=== PATIENT | male | born 1985 | race Caucasian/White ===

== ENCOUNTER 2016-07-01 15:20 | Emergency (ER) | payer SELFPAY ==
[~2016-07-01] VITALS: Ht 177.8 cm; Wt 79.4 kg
[~2016-07-01 15:20] MED LIST: METH4TAB PO; MOME15CR17 TP
--- OUTSIDE RECORDS SUMMARY | 2016-07-01 15:26 | XMS REPORT | Continuity of Care Document ---
Author Author [facility] Organization [facility] Address Unknown Phone Unavailable Care Team Providers Care Gang Tailer Name Role Phone NO, LOCAL PHYSICIAN PCP Unavailable Insurance Providers Payer Name Policy Number Subscriber Name Relationship Self Pay Johanny Handley 19 Self / Same As Patient Advance Directives Directive Response Recorded Date/Time Advance Directives No 01/27/16 10:36pm Resuscitation Status Full Code 01/27/16 10:36pm Chief Complaint and Reason for Visit Chief Complaint Skin/Wound Problems Reason for Visit NON-SPECIFIC DERMATITIS Problems No problem information available. Medications Current Home Medications Medication Dose Units Route Directions Days/Qty Instructions Start Date Methylprednisolone 4 Mg 4 Mg Oral As Directed 1 01/27/16 Mometasone Furoate 15 Gm 0 Topical Three Times A Day 1 01/27/16 Social History Social History Problem Response Recorded Date/Time Alcohol Use Denies Use 01/27/2016 10:36pm Recreational Drug Use No 01/27/2016 10:36pm Recent Foreign Travel No 01/27/2016 10:36pm Recent Infectious Disease Exposure No 01/27/2016 10:36pm Smoking Status Current Everyday Smoker 01/27/2016 10:36pm Type Used Cigarettes 01/27/2016 10:36pm Recent Hopitalizations No 01/27/2016 10:36pm Query Response Start Date Stop Date Smoking Status Current Everyday Smoker Hospital Discharge Instructions No hospital discharge instructions. Plan of Care Discharge Date 01/27/16 11:23pm Disposition 01 HOME, SELF-CARE Condition at Discharge Stable Instructions/Education Provided Acute Rash (ED) Prescriptions See Medication Section Referrals NO,LOCAL PHYSICIAN - Primary Care Physician Additional Instructions/Education NO NEW PRODUCTS BATHE DAILY AND AIR DRY COMPLETELY BEFORE APPLYING PRESCRIPTION CREAM FOLLOW UP WITH DR OF CHOICE IN 3-4 DAYS FOR FURTHER CARE All discharge instructions reviewed with patient and/or family. Voiced understanding. Functional Status No functional status results. Allergies, Adverse Reactions, Alerts No known allergies. Immunizations No immunization records. Vital Signs Acute Vital Signs Vital Response Date/Time Temperature (Fahrenheit) 98.2 degrees F (97.6 - 99.5) 01/27/2016 10:36pm Temperature (Calculated Celsius) 36.47374 degrees C (36.4 - 37.5) 01/27/2016 10:36pm Temperature Source Temporal 01/27/2016 10:36pm Pulse Rate (adult) 74 bpm (60 - 90) 01/27/2016 11:22pm Respiratory Rate 16 bpm (12 - 24) 01/27/2016 11:22pm O2 Sat by Pulse Oximetry 97 % (88 - 100) 01/27/2016 11:22pm Blood Pressure 115/67 mm Hg 01/27/2016 11:22pm Blood Pressure Mean 89 mm Hg 01/27/2016 10:36pm Pain Numeric Pain Scale 5-Moderate Pain 01/27/2016 10:36pm Height (Feet) 5 feet 01/27/2016 10:36pm Height (Inches) 10 inches 01/27/2016 10:36pm Height (Calculated Centimeters) 177.310863 cm 01/27/2016 10:36pm Weight (Pounds) 160 pounds 01/27/2016 10:36pm Weight (Calculated Kilograms) 72.167807 kilograms 01/27/2016 10:36pm Capillary Refill Capillary Refill Less Than 3 Seconds 01/27/2016 10:36pm Height 5 ft 10 in Weight 160 lb Body Mass Index 23.0 kg/m^2 Results No known relevant diagnostic tests, laboratory data and/or discharge summary. Procedures No known history of procedures. Encounters Encounter Location Arrival/Admit Date Discharge/Depart Date Attending Provider Departed Emergency Room [facility] 01/27/16 10:29pm 11:23pm JACQUELINE CHRISTIANSON DO Recent Diagnosis
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
[2016-07-01 16:53] VITALS: BP 135/74
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
== END 2016-07-01 16:54 | disposition home or self-care (01) ==
LOC: EDUNIT# 15:20 → ER 15:22
DX: S20.211A Contusion of right front wall of thorax, initial encounter (principal); F17.210 Nicotine dependence, cigarettes, uncomplicated; Y04.0XXA Assault by unarmed brawl or fight, initial encounter; Y99.8 Other external cause status
CPT/HCPCS: 71020; 71100; 99283